=== PATIENT | male | born 1955 | race Caucasian/White ===

== ENCOUNTER 2021-04-21 15:44 | Observation (INO) | payer MEDICARE, MEDICAID ==
[~2021-04-21] VITALS: Ht 182.9 cm; Wt 90.7 kg
[~2021-04-21 15:44] MED LIST: ASA81 PO; LOSA50TA3 PO; [UNRECOGNIZED DRUG - OTHER] PO; [UNRECOGNIZED DRUG - OTHER] PO
[2021-04-21 15:45] VITALS: BP_SYST 203
[2021-04-21] MEDS ORDERED: NITROGLYCERIN 0.4 MG TAB.SUBL SL ONE (16:00)
--- NOTE | 2021-04-21 16:04 | NUR ---
PATIENT ALERT, ORIENTED X4 PRESENTS TO ER WITH CP, DIZZINESS DENIES SOB, NAUSEA VOMITING. PLACED ON SCIENTIST CONTINUOUS PULSE OXIMETER
--- NOTE | 2021-04-21 16:31 | NUR ---
COVID SWAB PERFORMED AT BEDSIDE AND SENT TO LAB
[2021-04-21 17:27] LABS: BASOPHILS # (AUTO) 0.1 K/uL (0.0-0.2); BASOPHILS % (AUTO) 1.6 % (0.0-2.0); EOSINOPHILS # (AUTO) 0.2 K/uL (0.0-0.4); EOSINOPHILS % (AUTO) 2.1 % (0.0-4.0); HEMATOCRIT 46.3 % (36-54); HEMOGLOBIN 15.8 g/dL (14.0-18.0); LYMPHOCYTES # (AUTO) 1.8 K/uL (1.0-5.5); LYMPHOCYTES % (AUTO) 21.9 % (20.5-51.5); MEAN CORPUSCULAR HEMOGLOBIN 30 pg (27-31); MEAN CORPUSCULAR HGB CONC 34 % (32-36); MEAN CORPUSCULAR VOLUME 89 fL (79.0-98.0); MONOCYTES # (AUTO) 0.6 K/uL (0.0-1.0); MONOCYTES % (AUTO) 7.5 % (1.7-9.3); NEUTROPHILS # (AUTO) 5.4 K/uL (1.8-7.7); NEUTROPHILS % (AUTO) 66.9 % (40.0-70.0); PLATELET COUNT (AUTO) 203 K/uL (130-430); RED BLOOD CELL COUNT(AUTO) 5.23 MIL/uL (4.2-6.2); RED CELL DISTRIBUTION WIDTH 13.2 % (9.0-15.0)
[2021-04-21 17:44] LABS: CALCIUM 8.6 mg/dL (8.4-11.0); CREATININE 1.27 mg/dL (0.55-1.30); POTASSIUM 3.2 mmol/L (3.5-5.1)
[2021-04-21 18:02] LABS: TOTAL BILIRUBIN 0.3 mg/dL (0.0-1.0)
--- NOTE | 2021-04-21 18:23 | NUR ---
Patient resting quietly. No acute distress noted. Vital signs within normal range.NO ACUTE CHANGES NO SOB NO NAUSEA VOMITING.
--- NOTE | 2021-04-21 19:11 | NUR ---
Pt report received. Pt AAOx3, denies c/o C/P or discomfort, no needs verbalized. VICKI SONI. Son at bedside. Addendum: 04/22/21 at 0557 by SDEDAJ Pt initially seen by NOMAN SALCEDO prior to my shift.
--- NOTE | 2021-04-21 19:11 | NUR ---
REPORT ENDORSED TO [facility]
--- NOTE | 2021-04-21 20:00 | NUR ---
Dr. Driscoll at bedside to update pt on POC.
[2021-04-21] MEDS ORDERED: INSULIN LISPRO SLIDING SCALE 100 UNITS/ML VIAL (humaLOG) SUBCUT PRN (20:45)
[2021-04-21] MEDS ORDERED: NITROGLYCERIN 0.4 MG TAB.SUBL SL PRN (20:45)
[2021-04-21] MEDS ORDERED: POTASSIUM CHLORIDE 20 MEQ TAB.PRT.SR PO PRN (20:45)
[2021-04-21] MEDS ORDERED: NACL 0.9% 1,000 ML IV SCH (20:45)
[2021-04-21] MEDS ORDERED: MUPIROCIN 2% TOPICAL OINTMENT 22 GM NS PRN (20:45)
[2021-04-21] MEDS ORDERED: ZOLPIDEM TARTRATE 5 MG TABLET PO PRN ×2 (20:45)
[2021-04-21] MEDS ORDERED: DEXTROSE 50% JECT 50 ML DISP.SYRIN IVP PRN (20:45)
[2021-04-21] MEDS ORDERED: ACETAMINOPHEN 325 MG TABLET PO PRN ×2 (20:45)
[2021-04-21] MEDS ORDERED: LORazepam 2 MG/ML VIAL IVP PRN ×2 (20:45)
[2021-04-21] MEDS ORDERED: ONDANSETRON HCL 4 MG/2 ML VIAL IVP PRN (20:45)
[2021-04-21] MEDS ORDERED: DOCUSATE SODIUM 100 MG CAPSULE PO PRN (20:45)
[2021-04-21] MEDS ORDERED: MORPHINE 2 MG/ML INJ. SYRINGE IVP PRN ×3 (20:45)
[2021-04-21] MEDS ORDERED: MAGNESIUM SULFATE 50 ML IV PRN (20:45)
--- NOTE | 2021-04-21 21:00 | NUR ---
Pt denies c/o C/P or discomfort. VSS, NAD.
[2021-04-21] MEDS: METOPROLOL TARTRATE 25 MG TABLET PO SCH (23:08)
--- NOTE | 2021-04-21 23:08 | NUR ---
B/P 131/64. Pt medicated with Lopressor 25 mg PO per admit orders. Pt also given K-Dur 40 mEq PO per PRN order r/t K+ 3.2.
--- NOTE | 2021-04-21 23:25 | NUR ---
Patient will be admitted to care of Dr. Asher. Admitted to Tele Obs unit. Will go to room 102A. Complete and up to date summary report printed. SBAR report to be given at bedside with opportunity for questions.
[2021-04-21 23:53] VITALS: BP_SYST 139
[2021-04-22 00:21] VITALS: BP_SYST 139
--- NOTE | 2021-04-22 00:38 | NUR ---
CONSULTATION PAGED/CALLED Reason for Consultation: CHEST PAIN Person Who was Notified: THERESA Consulting Physician: DR. CHAN Plate Former Specialty: CARDIO Ordering Physician: DR. ZHU
[2021-04-22 00:41] VITALS: BP_SYST 118
[2021-04-22 04:10] VITALS: BP_SYST 130
[2021-04-22 07:11] LABS: BASOPHILS % (AUTO) 0.5 % (0.0-2.0); EOSINOPHILS # (AUTO) 0.1 K/uL (0.0-0.4); EOSINOPHILS % (AUTO) 1.8 % (0.0-4.0); HEMATOCRIT 44.7 % (36-54); LYMPHOCYTES % (AUTO) 25.9 % (20.5-51.5); MEAN CORPUSCULAR HEMOGLOBIN 30 pg (27-31); MEAN CORPUSCULAR HGB CONC 34 % (32-36); MEAN CORPUSCULAR VOLUME 89 fL (79.0-98.0); MONOCYTES # (AUTO) 0.6 K/uL (0.0-1.0); MONOCYTES % (AUTO) 8.4 % (1.7-9.3); NEUTROPHILS # (AUTO) 4.8 K/uL (1.8-7.7); NEUTROPHILS % (AUTO) 63.4 % (40.0-70.0); PLATELET COUNT (AUTO) 192 K/uL (130-430); RED BLOOD CELL COUNT(AUTO) 5.02 MIL/uL (4.2-6.2); RED CELL DISTRIBUTION WIDTH 13.4 % (9.0-15.0); WHITE BLOOD COUNT (AUTO) 7.6 K/uL (4.8-10.8)
[2021-04-22 07:52] LABS: CALCIUM 8.6 mg/dL (8.4-11.0); CREATININE 1.12 mg/dL (0.55-1.30); POTASSIUM 4.1 mmol/L (3.5-5.1)
[2021-04-22 08:00] VITALS: BP_SYST 132
[2021-04-22] MEDS: METOPROLOL TARTRATE 25 MG TABLET PO SCH (08:36)
[2021-04-22] MEDS ORDERED: LOSARTAN POTASSIUM 50 MG TABLET (COZAAR) PO SCH (09:00)
[2021-04-22] MEDS ORDERED: CLOPIDOGREL BISULFATE 75 MG TABLET PO SCH (09:00)
[2021-04-22] MEDS ORDERED: ASPIRIN 81 MG TAB.CHEW PO SCH ×2 (09:00)
[2021-04-22] MEDS ORDERED: ATORVASTATIN 20 MG TABLET PO SCH (09:00)
[2021-04-22 10:11] VITALS: BP_SYST 132
--- NOTE | 2021-05-05 13:06 | NUR ---
IV ADMINISTRATION END TIME (Observation Patients ONLY): late entry IV infusion of Normal Saline started 23:07 on 04/21/21 at and ended at 09:00 04/22/21 prior to patient discharge.
== END 2021-04-22 11:05 | disposition home or self-care (01) ==
LOC: SED 15:44 → STU 20:46
PROVIDERS: ADMIT General Practice; ATTEND General Practice
DX: R07.89 Other chest pain (principal); Z20.822 Contact with and (suspected) exposure to COVID-19; I10 Essential (primary) hypertension; E78.5 Hyperlipidemia, unspecified; E87.6 Hypokalemia; E44.1 Mild protein-calorie malnutrition; K21.9 Gastro-esophageal reflux disease without esophagitis; F32.9 Major depressive disorder, single episode, unspecified; F41.9 Anxiety disorder, unspecified; J44.9 Chronic obstructive pulmonary disease, unspecified; N40.0 Benign prostatic hyperplasia without lower urinary tract symptoms; Z79.899 Other long term (current) drug therapy; Z86.73 Personal history of transient ischemic attack (TIA), and cerebral infarction without residual deficits; Z87.891 Personal history of nicotine dependence; Z90.49 Acquired absence of other specified parts of digestive tract
CPT/HCPCS: 36415; 71045; 80048; 80053; 80061; 82962 ×2; 83036; 83735; 84484 ×2; 85025 ×2; 85379; 87426; 93005 ×2; 93306; 96360; 96361; 99285; G0378 ×2; 99284